=== PATIENT | male | born 1955 ===

== ENCOUNTER 2020-10-09 05:44 | Day surgery (SDC) | payer MEDICARE ==
[~2020-10-09] VITALS: Ht 177.8 cm; Wt 109.0 kg
[~2020-10-09 05:44] MED LIST: ALLEGRA ALLERGY60 MG PO; ALTACE10 MG PO; HYDROCHLOROTH12.5 M1 PO; LEVOTHYROXINE150 MC1 PO; LO-DOSE ASPIRIN81 M1 PO; LOVASTATIN40 MG PO; MACULAR HEALTH1 EACH PO; MOBIC15 MG PO; OSTEO BI-FLEX1 EAC3 PO; PROSCAR5 MG PO; VITAMIN D350 MC3 PO
--- NOTE | 2020-10-09 06:19 | NUR ---
pt was swabbed for covid 19 full ppe donned
--- NOTE | 2020-10-09 08:29 | NUR ---
10/09/20 0829 Dominique Salazar 0825- PT ARRIVES TO PACU AWAKE AND ANSWERING QUESTIONS. PT REPORTS NO PAIN OR NAUSEA. RESP EVEN AND UNLABORED. OXYGEN SAT HIGH 90'S ON 2L VIA NC.
--- NOTE | 2020-10-09 10:13 | NUR ---
RESULTS FROM RAPID COVID TEST NOT RETURNED YET. WILL WAIT UNTIL RESULTS TO VISIT PT.
--- NOTE | 2020-10-10 06:18 | OR ---
[facility] [address], [place] [address] Signed DATE OF OPERATION: 10/09/2020 SURGEON: Brandie Jimenez MD PREOPERATIVE DIAGNOSIS: Intermittent distal esophageal dysphagia. POSTOPERATIVE DIAGNOSES: 1. Mild to moderate gastroduodenitis. 2. Hiatal hernia (45-42 cm). 3. Mild distal esophagitis/linear ulcerated area. PROCEDURE: EGD with CLOtest and biopsies of the pyloric bulb, antrum and GE junction. ESTIMATED BLOOD LOSS: None. INDICATIONS: Ryan is a 65-year-old gentleman asked to see me for upper endoscopy. He has been through colonoscopy himself and therefore is familiar with endoscopy. However, the last couple of years he has developed intermittent distal esophageal dysphagia. He points at the xiphoid area. He said once in a while, meat gets stuck and then he has to cough it up. He said even if he swallows too much air sometimes it feels like it gets stuck. He was sent for speech therapy evaluation. The radiologist thought it was fairly unremarkable. However, the speech pathologist thought maybe the food was catching just a bit in the lower esophageal sphincter. No description of a hiatal hernia. He does not describe acid reflux. I gave him a pamphlet in the office on upper endoscopy. We had reviewed that together in detail. He understands there is risk including, but not limited to gas bloating, crampy abdominal pain, bleeding, perforation requiring surgery and missed diagnosis. We did not repeat the barium swallow at this time. We talked about empiric dilation depending on our intraoperative findings. He also understands the need for IV conscious sedation. He had expressed understanding and wished to proceed. PROCEDURE NOTE: Ryan was taken into our endoscopy suite and placed in a supine semi-recumbent position. The posterior oropharynx was anesthetized with lidocaine spray. A bite block was utilized for the case. He was given 3 mg of Versed and 100 mcg of fentanyl to cover the case. The adult gastroscope was introduced and advanced under direct visualization Electronically Signed By: BRANDIE JIMENEZ MD 10/10/20 0618 PATIENT NAME: RYAN BLANKENSHIP OPERATIVE REPORT DATE OF : 53 REPORT #: [id number] PHYSICIAN: BRANDIE JIMENEZ MD PCP: MARINE LOMELI REPORT IS CONFIDENTIAL AND NOT TO BE RELEASED WITHOUT AUTHORIZATION [facility] [address], [place] [address] Signed of camera without difficulty. His duodenum was unremarkable. The duodenal bulb in the stomach showed mild to moderate diffuse gastroduodenitis. No ulcerations in the pyloric bulb or the antrum. We took biopsies of the pyloric bulb in the stomach for pathologic review. We took an additional biopsy of the antrum for CLOtest. Upon retroflexion of scope, we can see he has a small hiatal hernia. It measured out 45-42 cm. It is compliant without stricture. There was no gastric or esophageal varices. We can see he has mild disruption to the Z-line and he has one linear ulceration up the distal esophagus just a couple of cm. It is clearly inflamed and trying to heal. We went and took a biopsy of this area for pathologic review. No Hummel's mucosa that we could see. Based on those results, we did not dilate him today and we did not see a Schatzki's ring. The middle and upper esophagus were completely unremarkable. After this, the gas was suctioned out and the gastroscope removed. Ryan tolerated the procedure quite well. RECOMMENDATIONS: I will see Ryan back in my office in 7 to 14 days to review his results. He should probably take omeprazole 20 mg one p.o. daily for the next 1-3 months and see if he can heal his esophagitis and see if that improves his dysphagia. He can certainly alter this regimen with his primary care provider. I will go ahead and write that prescription today and he can purchase that either by prescription or [id number]. Brandie Jimenez MD [facility] [place] /[id number] cc: PRIMO Valdes MD Copies: BRANDIE JIMENEZ MD ~ Electronically Signed By: BRANDIE JIMENEZ MD 10/10/20 0618 PATIENT NAME: RYAN BLANKENSHIP OPERATIVE REPORT DATE OF : 53 REPORT #: [id number] PHYSICIAN: BRANDIE JIMENEZ MD PCP: MARINE LOMELI REPORT IS CONFIDENTIAL AND NOT TO BE RELEASED WITHOUT AUTHORIZATION
--- NOTE | 2020-10-13 12:53 | PATH ---
[facility] [address], [place] [address] Signed SPECIMEN(S): A DUODENAL BULB SPECIMEN(S): B ANTRUM/PYLORUS SPECIMEN(S): C GE JUNCTION SPECIMEN SOURCE: A. DUODENAL BULB B. ANTRUM/PYLORUS C. GE JUNCTION CLINICAL HISTORY: EGD with biopsy. Esophageal dysphagia. MICROSCOPIC DESCRIPTION: Histologic sections of all submitted blocks are examined by light microscopy. These findings, together with the gross examination, support the pathologic diagnosis. FINAL PATHOLOGIC DIAGNOSIS: A. Duodenal bulb, biopsy: - Peptic duodenitis. - Negative for Helicobacter organisms on HE stain. - Negative for increased intraepithelial lymphocytes. - Negative for dysplasia or malignancy. B. Stomach, antrum/pylorus, biopsy: - Antral/oxyntic mucosa with no histopathologic abnormality. - Negative for Helicobacter organisms on HE stain. - Negative for dysplasia or malignancy. C. Gastroesophageal junction, biopsy: - Squamous mucosa with chronic inflammation and reactive epithelial changes, consistent with reflux esophagitis. - Negative for increased intraepithelial eosinophils. - Negative for intestinal metaplasia, dysplasia, or malignancy. NAL:cml:C2NR GROSS DESCRIPTION: Three specimens are received in three containers, labeled "MO." A. The specimen, labeled "MO, 1," and designated on the requisition "duodenal bulb," is received in formalin and consists of one lee soft tissue fragment that measures 0.5 cm in greatest dimension. The specimen is entirely submitted in cassette (A1). B. The specimen, labeled "MO, 2," and designated on the requisition "antrum/pylorus," is received in formalin and consists of two lee soft tissue PATIENT NAME: OCTAVIO BLANKENSHIP PATHOLOGY DATE OF : 53 REPORT #: [id number] PHYSICIAN: JEFFREY PATHOLOGY PCP: MARINE LOMELI REPORT IS CONFIDENTIAL AND NOT TO BE RELEASED WITHOUT AUTHORIZATION [facility] [address], [place] [address] Signed fragments that measure 0.2-0.3 cm in greatest dimension. The specimen is entirely submitted in cassette (B1). C. The specimen, labeled "MO, 3," and designated on the requisition "GE junction," is received in formalin and consists of one lee soft tissue fragment that measures 0.6 cm in greatest dimension. The specimen is entirely submitted in cassette (C1). AT (under the direct supervision of a pathologist) The Gross Description was prepared using a voice recognition system. The report was reviewed for accuracy; however, sound-alike word errors, addition and/or deletions may occur. If there is any question about this report, please contact Client Services. PERFORMING LABORATORY: The technical component was performed by [email or web address] [address] (Gas Meter Reader: Uma Espitia MD; CLIA# [id number]). [facility] [address] [address] (CLIA# [id number]). Diagnostician: Fatimah Gramajo MD Pathologist Electronically Signed 10/13/2020 Copies: ~ PATIENT NAME: OCTAVIO BLANKENSHIP PATHOLOGY DATE OF : 53 REPORT #: [id number] PHYSICIAN: JEFFREY PATHOLOGY PCP: MARINE LOMELI REPORT IS CONFIDENTIAL AND NOT TO BE RELEASED WITHOUT AUTHORIZATION
== END 2020-10-09 09:05 | disposition home or self-care (01) ==
LOC: DS 05:44 → OPS 05:44 → DS 09:00 → OPS 09:00 → DS 12-03 06:45
PROVIDERS: ATTEND Colon & Rectal Surgery
PROC: 0DB78ZX Excision of Stomach, Pylorus, Via Natural or Artificial Opening Endoscopic, Diagnostic (ICD-10-PCS; 2020-10-09)
PROC: 0DB48ZX Excision of Esophagogastric Junction, Via Natural or Artificial Opening Endoscopic, Diagnostic (ICD-10-PCS; principal; 2020-10-09 09:00)
DX: K22.10 Ulcer of esophagus without bleeding (principal); K29.90 Gastroduodenitis, unspecified, without bleeding; K44.9 Diaphragmatic hernia without obstruction or gangrene; I10 Essential (primary) hypertension; E03.9 Hypothyroidism, unspecified; E78.2 Mixed hyperlipidemia; Z79.82 Long term (current) use of aspirin; Z20.822 Contact with and (suspected) exposure to COVID-19
CPT/HCPCS: 86677; 99153; C9803; G0500; J2250; J3010; J7121; U0003